=== PATIENT | female | born 1965 | race Caucasian/White ===

== ENCOUNTER 2022-02-10 17:42 | Emergency (ER) | payer MEDICARE, OTHER ==
[~2022-02-10] VITALS: Ht 149.9 cm; Wt 70.3 kg
--- NOTE | 2022-02-10 17:45 | NUR ---
PATIENT BIBA TO BED 11
[2022-02-10 17:54] VITALS: BP 90/54
--- NOTE | 2022-02-10 18:00 | NUR ---
PT BIB ALS RUN C/O SEIZURE. PT HAD WITNESSED SEIZURE TONIC CLONIC LASTING 2 MINUTES PER FAMILY. PT POST ICTAL AT THIS TIME. PENDING ER MD KENNEDY.
[2022-02-10 18:39] LABS: BASOPHILS % (AUTO) 0.6 % (0.0-2.0); HEMATOCRIT 40.7 % (36-48); HEMOGLOBIN 13.8 g/dL (12.0-16.0); LYMPHOCYTES # (AUTO) 1.6 K/uL (2.5-16.5); LYMPHOCYTES % (AUTO) 42.1 % (20.5-51.1); MEAN CORPUSCULAR HEMOGLOBIN 34 pg (27-31); MEAN CORPUSCULAR HGB CONC 34 g/dL (33-37); MEAN CORPUSCULAR VOLUME 101.5 fL (80-94); MONOCYTES # (AUTO) 0.4 K/uL (0.8-1.0); MONOCYTES % (AUTO) 11.3 % (1.7-9.3); NEUTROPHILS # (AUTO) 1.8 K/uL (1.8-7.7); PLATELET COUNT (AUTO) 219 K/uL (140-450); RED BLOOD CELL COUNT(AUTO) 4.01 MIL/uL (4.20-5.40); RED CELL DISTRIBUTION WIDTH 13.9 % (11.6-13.7); WHITE BLOOD COUNT (AUTO) 3.9 K/uL (4.8-10.8)
--- NOTE | 2022-02-10 18:54 | NUR ---
PT TAKEN TO CT
[2022-02-10 19:02] LABS: ALBUMIN 3.1 g/dL (3.4-5.0); ANION GAP 11.3 (8-16); CARBON DIOXIDE 27.4 mmol/L (21-32); CREATININE 1.1 mg/dL (0.6-1.3); POTASSIUM 3.7 mmol/L (3.5-5.1); TOTAL BILIRUBIN 0.4 mg/dL (0.0-1.0)
--- NOTE | 2022-02-10 19:06 | NUR ---
Patient being evaluated by DR RIVERA at bedside.
--- NOTE | 2022-02-10 19:47 | NUR ---
COVID/[place] SWAB COLLECTED AND WALKED TO LAB
[2022-02-10] MEDS ORDERED: CYCL-711 PO (19:52)
[2022-02-10] MEDS ORDERED: MIRT-91 PO (19:52)
[2022-02-10] MEDS ORDERED: cefTRIAXone 1,000 MG in DEXT 5% MINI-BAG PLUS 50 ML IV ONE (20:10)
--- NOTE | 2022-02-10 20:20 | NUR ---
IT RISK AND ASSURANCE SENIOR MANAGER AT BEDSIDE
[2022-02-10] MEDS ORDERED: cefTRIAXone 1,000 MG VIAL ONE (20:32)
[2022-02-10] MEDS ORDERED: NACL 0.9% 1,000 ML IV ONE ×3 (20:40→23:40)
[2022-02-10] MEDS ORDERED: LORazepam 2 MG/ML VIAL ONE (21:32)
--- NOTE | 2022-02-10 21:32 | NUR ---
PT ADJUSTED IN BED AND BEGAN HAVING TONIC CLONIC SEIZURE LASTING APPROX 20 SECONDS. ER MD NOTIFIED. PT GIVEN 1MG ATIVAN IVP. PT IS NOW SLEEPING. PT HAS COAGULATED BLOOD TINGED SALIVA, NO ORAL TRAUMA IDENTIFIED.
[2022-02-10] MEDS ORDERED: LORazepam 2 MG/ML VIAL IVP ONE (21:35)
--- NOTE | 2022-02-10 21:55 | NUR ---
# 16 FR Urinary catheter inserted utilizing sterile technique. Immediate return of 200 ml CLEAR YELLOW urine noted. Urine sample collected and sent to lab. Pt tolerated procedure WELL.
--- NOTE | 2022-02-10 22:28 | NUR ---
PT IS SLEEPING AND SPO2 DROPPED TO 82. PT REPOSITIONED TO SEMI FOWLERS AND PILLOW PLACED FOR SUPPORT. PT PLACED ON 2 L/MIN NC, SPO2 NOW AT 96%
[2022-02-10] MEDS ORDERED: levETIRAcetam 1,000 MG in NACL 0.9% 100 ML IV ONE (22:40)
[2022-02-10] MEDS ORDERED: levETIRAcetam 100 MG/ML VIAL IV ONE (22:46)
[2022-02-10 22:49] LABS: APPEARANCE,URINE CLEAR (CLEAR); BILIRUBIN,URINE NEGATIVE (NEGATIVE); BLOOD, URINE TRACE-I (NEGATIVE); COLOR,URINE YELLOW (YELLOW); LEUKOCYTE ESTERASE ,URINE NEGATIVE (NEGATIVE); NITRITE, URINE POSITIVE (NEGATIVE); UGLUCOSE NEGATIVE (NEGATIVE)
[2022-02-10 23:31] LABS: RBC,URINE 0-5 /HPF (0-5)
--- NOTE | 2022-02-11 00:17 | NUR ---
Patient to be transferred to [facility]. Is being transferred due to INSURANCE. Receiving facility has accepting physician and available space. ER physician has signed transfer form. Patient or responsible republican has agreed to transfer and signed form. Patient belongings inventoried and will be sent with patient. Copy of nursing notes, lab reports, EKG, Physicians Orders and X-rays to be sent with patient. Report called to MIKAELA SHELTON at receiving facility. [facility] ambulance service has been called for transfer. ETA is [id number].
--- NOTE | 2022-02-11 02:02 | NUR ---
[facility] AT BEDSIDE
[2022-02-11 02:07] VITALS: BP 115/54
== END 2022-02-11 02:02 | disposition short-term general hospital (02) ==
LOC: MED 17:42
DX: R56.9 Unspecified convulsions (principal); J18.9 Pneumonia, unspecified organism; N39.0 Urinary tract infection, site not specified
CPT/HCPCS: 36415; 70450; 71045; 80053; 81001; 83605; 85025; 87040; 87086; 87426; 93005; 96361; 96365; 96367; 96375; 99285; J0696; J1953; J2060; J7030